=== PATIENT | female | born 1955 | race African-American/Black ===

== ENCOUNTER 2018-05-01 05:39 | Day surgery (SDC) | payer BC ==
[~2018-05-01] VITALS: Ht 170.2 cm; Wt 127.3 kg
[2018-05-01 06:22] LABS: APTT 27.5 SECONDS (22.8-39.4); INR 1.08 (0.85-1.17); PROTIME 13.5 SECONDS (11.6-15.0)
[2018-05-01 06:31] LABS: HEMOGLOBIN 13.4 g/dL (12-16); MCH 29.6 pg (26.0-34.0); MCHC 31.9 g/dL (31.0-37.0); MCV 92.7 fL (80.0-100.0); MEAN PLATELET VOLUME 10.6 fL (7.4-10.4); RBC 4.53 10x6/uL (4.00-5.40); RDW 15.6 % (11.5-14.5); WBC 5.5 10x3/uL (4.8-10.8)
[2018-05-01] MEDS ORDERED: COZAAR100 MG (06:32)
[2018-05-01] MEDS ORDERED: LIPITOR40 MG (06:33)
[2018-05-01] MEDS ORDERED: TOPROL XL100 MG PO (06:34)
[2018-05-01] MEDS ORDERED: NORVASC10 MG PO (06:34)
[2018-05-01] MEDS ORDERED: XARELTO20 MG PO (06:34)
[2018-05-01] MEDS ORDERED: FUROSEMIDE40 MG PO (06:35)
[2018-05-01] MEDS ORDERED: DIFLUCAN150 MG (06:35)
[2018-05-01 06:51] VITALS: Ht 170.2 cm; Wt 127.3 kg
--- NOTE | 2018-05-03 10:57 | OP ---
PATIENT NAME: BRIANDA SALMON MEDICAL RECORD: [id number] :55 LOCATION:[facility] ADMISSION DATE: SURGEON: LIOR ESTRADA DO DATE OF OPERATION: 05/01/2018 PROCEDURE: EGD with biopsies. INDICATIONS FOR PROCEDURE: GERD, heartburn, epigastric abdominal pain. SCOPE: Olympus video gastroscope. MEDICATIONS: Propofol 100 mg IV per anesthesia. ESTIMATED BLOOD LOSS: Minimal. COMPLICATIONS: None. FINDINGS: Informed consent was given. The patient was made comfortable with the above medication. After reaching an adequate level of sedation by slow IV push, the patient was placed on her left side. The endoscope was advanced under direct visualization through the mouth to the second portion of the duodenum with ease. The upper, middle, and lower thirds of the esophagus appeared normal, other than visualization of free reflux throughout the entire esophagus. At the GE junction, there were some minor changes consistent with LA class A reflux-induced esophagitis. The endoscope was advanced beyond the GE junction into a large hiatal hernia. Within this hernia, there was a significant amount of retained food. The endoscope was advanced beyond the diaphragm hiatus into the stomach. In the antrum and prepyloric regions, there were changes of erythema and granularity consistent with gastritis. Cold forceps biopsies were taken to submit for histopathology and to rule out the presence of H. pylori. Retroflexion was performed with visualization of a large, mixed, sliding type hiatal hernia and paraesophageal hernia. The endoscope was advanced beyond the pylorus into the duodenum. The duodenum appeared normal down to the second portion. The endoscope was withdrawn from the patient. The patient tolerated the procedure well and there were no immediate complications. IMPRESSION: 1. LA class A reflux-induced esophagitis. 2. Mixed type hiatal hernia, which is large and with associated food retention. 3. Gastritis. PLAN AND RECOMMENDATIONS: 1. Discharge home when recovery parameters are met. 2. Follow up biopsy specimen results. 3. Continue current medications. A prescription will be provided for 40 mg of Nexium daily. 4. Referral to surgery regarding the large, mixed hernia. 5. Can follow up in GI clinic after surgery evaluation and management of hiatal hernia. TRANSINT:[id number] Voice Confirmation ID: [id number] DOCUMENT ID: [id number] OPERATIVE REPORT [id number] BRIANDA SALMON LIOR ESTRADA DO at 1057 CC: [id number] DICTATION DATE: 05/01/18 0755 SK[facility] PATROL OFFICER: 05/01/18 1109 [facility] 05/01/18 [id number] [place] [address]
== END 2018-05-01 08:47 | disposition home or self-care (01) ==
LOC: D.OPS 05:39
PROVIDERS: Anesthesiology
DX: K21.9 Gastro-esophageal reflux disease without esophagitis (principal); R10.13 Epigastric pain; Z01.812 Encounter for preprocedural laboratory examination

== ENCOUNTER → 2018-05-29 09:58 | Outpatient (CLI) | payer BC ==
[2018-05-01 06:51] VITALS: BMI 43.9
[~2018-05-29 09:58] MED LIST: COZAAR100 MG; DIFLUCAN150 MG; FUROSEMIDE40 MG PO; LIPITOR40 MG; NORVASC10 MG PO; TOPROL XL100 MG PO; XARELTO20 MG PO
== END | disposition home or self-care (01) ==
LOC: D.RAD 09:58
PROVIDERS: ATTEND Surgery
DX: K44.9 Diaphragmatic hernia without obstruction or gangrene (principal); K21.9 Gastro-esophageal reflux disease without esophagitis

== ENCOUNTER → 2018-06-27 07:06 | Day surgery (SDC) | payer BC ==
[~2018-06-27] VITALS: Ht 172.7 cm; Wt 122.7 kg
[2018-06-27 07:24] LABS: HEMATOCRIT 43.4 % (36.0-48.0); HEMOGLOBIN 13.6 g/dL (12-16); MCH 29.3 pg (26.0-34.0); MCHC 31.3 g/dL (31.0-37.0); MCV 93.5 fL (80.0-100.0); RBC 4.64 10x6/uL (4.00-5.40); RDW 14.9 % (11.5-14.5); WBC 7.9 10x3/uL (4.8-10.8)
[2018-06-27 07:42] VITALS: BP 156/82; Ht 172.7 cm; Wt 122.7 kg
--- NOTE | 2018-06-27 11:04 | NUR ---
0830 SCHEDULED FOR EGD WITH [facility]. UPON EXAM STATES HAS A PACEMAKER. [facility]ARTE IS CONTRAINDICATED IN PERSONS WITH PACEMAKERS. [facility] CANCELLED. OFFICE CHECKING ON INSURANCE TO SEE IF MANOMETRY WITH PH CAN BE DONE.
--- NOTE | 2018-06-27 11:07 | NUR ---
[address] FRASER FOR A MANOMETRY WITH PH TESTING. WILL PROCEED WITH MANOMETRY AND PH PER ORDER.
== END | disposition home or self-care (01) ==
LOC: D.OPS 06-22 11:30
PROVIDERS: Anesthesiology; ATTEND Surgery
DX: K21.9 Gastro-esophageal reflux disease without esophagitis (principal); Z01.812 Encounter for preprocedural laboratory examination

== ENCOUNTER → 2018-10-19 14:04 | Outpatient (CLI) | payer OTHER ==
[2018-06-27 07:42] VITALS: BMI 41.1
== END | disposition home or self-care (01) ==
LOC: D.RT 14:04
PROVIDERS: ATTEND Pediatrics
DX: J98.4 Other disorders of lung (principal); R06.02 Shortness of breath

== ENCOUNTER → 2018-12-25 08:01 | Outpatient (CLI) | payer BC ==
[2018-06-27 07:42] VITALS: BMI 41.1
[2018-12-25 10:10] LABS: ANION GAP 9.3 mmol/L (8-16); CREATININE - SERUM 1.4 mg/dL (0.6-1.3); POTASSIUM - SERUM 4.3 mmol/L (3.5-5.1)
[2018-12-26 11:10] LABS: ANA REFLEX - DIRECT Negative (Negative)
[2018-12-26 19:08] LABS: ANGIOTENSIN CONVERTING ENZYME 55 U/L (14-82)
== END | disposition home or self-care (01) ==
LOC: D.RT 12-21 09:00 → D.CT 12-21 10:30 → D.RT 08:01
PROVIDERS: ATTEND Internal Medicine Pulmonary Disease
DX: D86.9 Sarcoidosis, unspecified (principal)